=== PATIENT | female | born 1940 | race Two or more races ===

== ENCOUNTER 2018-08-28 13:17 | Emergency (ER) | payer OTHER ==
[~2018-08-28] VITALS: Ht 154.9 cm; Wt 53.1 kg
[~2018-08-28 13:17] MED LIST: CEFADROXIL500 MG; SYNTHROID50 MCG
[2018-08-28] MEDS ORDERED: CRESTOR5 MG (13:56)
[2018-08-28] MEDS ORDERED: AMOX1TAB5 PO (15:41)
[2018-08-28] MEDS ORDERED: MUPIROCIN22 GM TOP (15:41)
== END 2018-08-28 15:56 | disposition home or self-care (01) ==
LOC: ER 13:17
DX: S90.411A Abrasion, right great toe, initial encounter (principal); X58.XXXA Exposure to other specified factors, initial encounter; Y93.89 Activity, other specified; Y92.89 Other specified places as the place of occurrence of the external cause; Y99.8 Other external cause status

== ENCOUNTER 2018-09-04 10:22 | Outpatient (CLI) | payer OTHER ==
[~2018-09-04 10:22] MED LIST changes: +AMOX1TAB5 PO; +CRESTOR5 MG; +MUPIROCIN22 GM TOP
== END 2018-09-04 17:00 | disposition home or self-care (01) ==
LOC: RAD 10:22
DX: M15.0 Primary generalized (osteo)arthritis (principal); M79.671 Pain in right foot

== ENCOUNTER 2019-01-08 11:30 | Outpatient (CLI) | payer OTHER | END 2019-01-08 11:36 | disposition home or self-care (01) | LOC: RAD 11:30 | DX: S22.32XA Fracture of one rib, left side, initial encounter for closed fracture (principal); M15.0 Primary generalized (osteo)arthritis ==

== ENCOUNTER 2022-09-23 09:41 | Outpatient (CLI) | payer OTHER | END 2022-09-23 09:43 | disposition home or self-care (01) | LOC: SONOGRAMA 09:41 | PROVIDERS: ATTEND Specialist | DX: R10.2 Pelvic and perineal pain (principal) ==

== ENCOUNTER 2022-09-28 12:40 | Outpatient (CLI) | payer OTHER | END 2022-09-28 12:42 | disposition home or self-care (01) | LOC: NUCLEAR 12:40 | PROVIDERS: ATTEND Obstetrics & Gynecology | DX: M81.0 Age-related osteoporosis without current pathological fracture (principal) ==

== ENCOUNTER 2024-12-28 08:43 | Emergency (ER) | payer OTHER ==
[~2024-12-28] VITALS: Ht 154.9 cm; Wt 56.7 kg
[2024-12-28 08:52] VITALS: BP 175/80; O2SAT 98
[2024-12-28] MEDS ORDERED: AMLODIPINE-OLM1 EAC2 (08:54)
[2024-12-28] MEDS ORDERED: LOSARTAN POTASS50 MG (08:54)
[2024-12-28 10:37] LABS: BASO % 0.4 % (0.1-1.2); EOS # 0.13 (0.04-0.54); EOS % 0.9 % (0.7-7.0); HEMATOCRIT 41.9 % (34.1-44.9); HEMOGLOBIN 13.8 g/dL (11.2-15.7); LYMPH # 1.99 (1.18-3.74); LYMPH % 13.8 % (19.3-53.1); MEAN CORPUSCULAR HEMOGLOBIN 30.3 pg (25.6-32.2); MONO # 1.03 (0.24-0.82); MONO % 7.1 % (4.7-12.5); NEUT # 11.22 (1.56-6.13); NEUT % 77.5 % (34.0-71.1); PLATELET COUNT 258 K/uL (163-369); RED BLOOD COUNT 4.55 M/uL (3.93-5.22); RED CELL DISTRIBUTION WIDTH 13.1 % (11.6-14.4)
[2024-12-28 10:52] LABS: PH,URINE 5.5 (5.0-8.0); URINE APPEARANCE Turbid; URINE BILIRRUBIN Small (NEGATIVE); URINE BLOOD Large; URINE COLOR Dark Yellow; URINE GLUCOSE Negative (NEGATIVE); URINE KETONE Negative (NEGATIVE); URINE LEUKOCYTE Large; URINE NITRATE Positive
[2024-12-28 10:56] LABS: URINE BACTERIA 965.7 uL (0.0-1933); URINE EPITHELIAL CELLS 20.9 uL (0.0-38.8)
[2024-12-28 11:01] LABS: CALCIUM 8.8 mg/dL (8.5-10.1); CREATININE SERUM 0.68 mg/dL (0.55-1.02); GFR 82.84; POTASSIUM 4.36 mEq/L (3.5-5.1)
[2024-12-28 11:39] LABS: URINE PROTEIN 100 (NEGATIVE); URINE RBC > 10558.9 uL (0.0-20.8); URINE WBC > 5548.3 uL (0.0-23.2)
== END 2024-12-28 12:13 | disposition home or self-care (01) ==
LOC: ER 08:43
PROVIDERS: General Practice
DX: N39.0 Urinary tract infection, site not specified (principal)

== ENCOUNTER 2025-04-23 10:47 | Outpatient (CLI) | payer OTHER ==
[~2025-04-23 10:47] MED LIST changes: +AMLODIPINE-OLM1 EAC2; +LOSARTAN POTASS50 MG
== END 2025-04-23 10:50 | disposition home or self-care (01) ==
LOC: SONOGRAMA 10:47
PROVIDERS: ATTEND Internal Medicine
DX: R10.84 Generalized abdominal pain (principal)